=== PATIENT | male | born 1990 | race Caucasian/White ===

== ENCOUNTER 2016-08-31 13:20 | Emergency (ER) | payer BC ==
[~2016-08-31] VITALS: Ht 180.3 cm; Wt 102.3 kg
[2016-08-31 13:30] VITALS: BP 138/91; PULSE 82; TEMP 98.9
== END 2016-08-31 15:17 | disposition home or self-care (01) ==
LOC: COL.ER 13:20
DX: S82.832A Other fracture of upper and lower end of left fibula, initial encounter for closed fracture (principal); X50.1XXA Overexertion from prolonged static or awkward postures, initial encounter; Y92.414 Local residential or business street as the place of occurrence of the external cause